=== PATIENT | female | born 1970 | race Caucasian/White ===

== ENCOUNTER → 2017-01-13 | Outpatient (CLI) | payer BC ==
--- NOTE | 2017-01-13 10:24 | KCIC ---
DATE: 01/13/2017 EXAM: MAMMO ANDREW SCREENING BILATERAL HISTORY: Routine screening COMPARISON: 11/25/2015 This study was interpreted with the benefit of Computerized Aided Detection (CAD). The breast parenchyma is heterogeneously dense, which could reduce sensitivity of mammography. Breast parenchyma level C. FINDINGS: 2-D and 3-D tomographic imaging was performed is seen in CC and MLO projections. There is a cluster of 2 smooth nodules centered at and just superior to the midline of the right breast. The more anterior nodule measures 3.8 cm while the adjacent posterior nodule measures 2.5 cm. There is a smooth 18 mm nodule in the central aspect of the left breast. Several additional scattered small subcentimeter smooth nodules are present in both breasts. The findings suggest multiple cysts. These are better demonstrated on the current tomographic views than on the prior 2-D images due to technical factors. No suspicious microcalcifications are evident. IMPRESSION: Multiple bilateral smooth breast nodules as described above, most likely representing cysts. Bilateral breast sonography is suggested to exclude a coexisting solid mass. BI-RADS CATEGORY: 0 INCOMPLETE: NEEDS ADDITIONAL IMAGING EVALUATION AND/OR PRIOR MAMMOGRAMS FOR COMPARISON. RECOMMENDED FOLLOW-UP: ADD ADDITIONAL IMAGING PQRS compliance statement: Patient information was entered into a reminder system with a target due date for the next mammogram. Mammography is a sensitive method for finding small breast cancers, but it does not detect them all and is not a substitute for careful clinical examination. A negative mammogram does not negate a clinically suspicious finding and should not result in delay in biopsying a clinically suspicious abnormality. "Our facility is accredited by the [employer] Mammography [employer]."
== END | disposition home or self-care (01) ==
LOC: KCIC MAMMO 08:15
PROVIDERS: ATTEND Advanced Practice Midwife
DX: Z12.31 Encounter for screening mammogram for malignant neoplasm of breast (principal); N63.10 Unspecified lump in the right breast, unspecified quadrant; N63.20 Unspecified lump in the left breast, unspecified quadrant
CPT/HCPCS: 77063; G0202; 77067

== ENCOUNTER → 2017-01-19 | Outpatient (CLI) | payer BC ==
--- NOTE | 2017-01-19 10:20 | RAD ---
EXAM: Bilateral breast ultrasound. HISTORY: Multiple bilateral densities on mammographic screening. Sonography is requested.. COMPARISON: 01/13/2017. FINDINGS: Sonographic evaluation of both breasts was performed. There are multiple benign cysts on the right. There is no suspicious solid mass. The largest cyst at the 12:00 position 1 cm from the nipple measures 3.3 x 2.2 cm. One at the 11:00 position 3 cm from the nipple measures 1.8 x 1.1 cm and contains a thin septation. Multiple other cysts measure up to 2.7 cm. Images of the right axilla reveal no suspicious lymph nodes. On the left, there are multiple cysts, some of which are calculated. There is no suspicious solid mass. At the 12:00 position 3 cm from the nipple, there is a cluster of small cysts versus a multiseptated cyst that measures 1.8 x 1.1 cm in conglomerate. A hypoechoic oval mass with increased through transmission at the 2:30 position 5 cm from the nipple measures 9 x 5 x 4 mm there is no internal flow and this is consistent with a complicated cyst. At the 12:00 position 2 cm from the nipple, a 9 x 6 mm cyst has a thin septation. Another at the 6:00 position 2 cm from the nipple is hypoechoic, but oval with through transmission and no internal flow. This is also likely, acute cyst. Images of the left axilla reveal no suspicious lymph nodes. IMPRESSION: 1. Multiple bilateral cysts measure up to 3.3 cm on the right. Some are complicated, but all appear benign. No suspicious solid mass. 2. BI-RADS Category 2: Benign findings. 3. Recommend bilateral screening mammography in one year.
== END | disposition home or self-care (01) ==
LOC: KCIC US 09:22
PROVIDERS: ATTEND Advanced Practice Midwife
DX: N63.10 Unspecified lump in the right breast, unspecified quadrant (principal); N63.20 Unspecified lump in the left breast, unspecified quadrant
CPT/HCPCS: 76641

== ENCOUNTER → 2017-09-23 | Outpatient (CLI) | payer BC | END | disposition home or self-care (01) | LOC: MAMMO 13:25 | DX: N63.11 Unspecified lump in the right breast, upper outer quadrant (principal) | CPT/HCPCS: 76641; 77065 ==

== ENCOUNTER → 2019-01-17 | Outpatient (CLI) | payer BC ==
--- NOTE | 2019-01-17 12:59 | KCIC ---
Bilateral digital screening mammograms with 3-D tomosynthesis: Reason for examination: Routine screening. Comparison is made to previous studies dated 09/23/2017 and 01/13/2017. Bilateral mammograms in CC and oblique projections were obtained with 2-D imaging and 3-D tomosynthesis imaging on a Siemens Inspiration unit and reviewed on the workstation. Interpretation was made with the benefit of CAD. The skin and nipples show no abnormalities. No abnormal axillary lymph nodes are seen. The breast parenchyma is extremely dense. (Breast density: Category D.) There continue to be circumscribed nodules in the right breast which are showing interval enlargement with the largest lesion now measuring 4.6 cm in greatest dimension. These correspond with cysts seen on previous ultrasound examination. There are smaller circumscribed nodules measuring up to 1 cm in size in the left breast which also probably represent cysts. This can be further evaluated with ultrasound. There are no suspicious calcifications. Impression: Continued presence of large circumscribed lesions in the right breast consistent with cysts seen on previous ultrasound examination with the largest now measuring 4.6 cm in greatest dimension. Smaller circumscribed lesions measuring up to 1 cm in size in the left breast also probably representing cysts but can be further evaluated with ultrasound. Your patient's mammogram demonstrates that she has dense breast tissue (breast density category C or D), which could hide abnormalities, and if she has other risk factors for breast cancer that have been identified, she might benefit from supplemental screening tests that may be suggested by you as her ordering physician. Dense breast tissue, in and of itself, is a relatively common condition. Therefore, this information is not provided to cause undue concern, but rather to raise your awareness and to promote discussion with your patient regarding the presence of other risk factors, in addition to dense breast tissue. Your patient's mammography results will be sent to her. BI-RAD Category 0: Complete. Needs additional imaging evaluation. "Our facility is accredited by the [employer] Mammography [employer]." This patient's information has been entered into a reminder system for the patient to be notified with the results of her examination and a target date for the next mammogram. Electronically signed by: Ritika Tamayo MD (01/17/2019 12:56 PM) [id number]
== END | disposition home or self-care (01) ==
LOC: KCIC MAMMO 08:06
PROVIDERS: ATTEND Obstetrics & Gynecology
DX: Z12.31 Encounter for screening mammogram for malignant neoplasm of breast (principal); N64.89 Other specified disorders of breast
CPT/HCPCS: 77063; 77067

== ENCOUNTER → 2019-02-06 | Outpatient (CLI) | payer BC ==
--- NOTE | 2019-02-06 13:35 | KCIC ---
Bilateral breast ultrasound: Reason for examination: Bilateral breast nodules. Comparison is made to previous exams dated 09/23/2017 and 01/19/2017. Bilateral whole breast ultrasound including evaluation of all 4 quadrants and the retroareolar and axillary regions of both breasts was performed. The right breast shows presence of cysts with the largest measuring 3.8 cm in size and located at the 12:30 position 4 cm from the nipple. There is also a small hypoechoic nodule at the 9:00 position 3 cm from the nipple measuring 4.9 mm in greatest dimension and at the 9:00 position 2 cm from the nipple measuring 5.2 mm in greatest dimension which probably represent small fibroadenoma or complicated cysts. No suspicious nodules are seen. No abnormal appearing lymph nodes are seen in the axilla. The left breast shows a cluster of cystic lesions at the 12:00 position 3 cm from the nipple which has decreased in size measuring 6.7 mm in greatest dimension. At the 12:30 position 3 cm from the nipple, there is a small circumscribed lesion measuring 6.6 mm in greatest dimension consistent with a complicated cyst. In the 2:00 position 4 cm from the nipple there is a 9.6 mm hypoechoic lesion with a benign fibrocystic/fibroadenomatous appearance. There appears to be cysts at the 3:00 position 3 cm from the nipple and 3:00 position 2 cm from the nipple measuring up to 1.1 cm in greatest dimension. There is a hypoechoic circumscribed lesion at the 6:00 position 2 cm from the nipple measuring 5.7 mm in size which may represent a fibroadenoma but is unchanged. There is a 4.9 mm hypoechoic circumscribed lesion in the 9:00 retroareolar position which may represent a small concave cysts or fibroadenoma. No suspicious-appearing nodules are seen. No abnormal appearing lymph nodes are seen in the axilla. IMPRESSION: Continued presence of benign-appearing cystic and fibrocystic/fibroadenomatous nodules bilaterally. No suspicious nodules seen. Recommend 6 month follow-up with ultrasound. BI-RADS Category 3: Probably Benign. "Our facility is accredited by the [employer] Mammography [employer]." This patient's information has been entered into a reminder system for the patient to be notified with the results of her examination and a target date for the next mammogram. Electronically signed by: Ritika Tamayo MD (02/06/2019 1:32 PM) [id number]
== END | disposition home or self-care (01) ==
LOC: KCIC US 08:48
PROVIDERS: ATTEND Obstetrics & Gynecology
DX: N60.01 Solitary cyst of right breast (principal); N63.11 Unspecified lump in the right breast, upper outer quadrant; N64.89 Other specified disorders of breast
CPT/HCPCS: 76641

== ENCOUNTER → 2020-03-05 | Outpatient (CLI) | payer BC ==
--- NOTE | 2020-03-05 11:13 | RAD ---
EXAM: Bilateral digital diagnostic mammogram with tomosynthesis; bilateral breast sonogram. HISTORY: 49-year-old female presents for follow-up evaluation of benign-appearing findings within bot h breasts demonstrated on a sonogram dated 02/06/2019. The patient did not return at the recommended 6 month follow up interval and is now due for bilateral mammography. TECHNIQUE: Full-field digital craniocaudal and mediolateral oblique 2D and 3D tomosynthesis images of both breasts are obtained for evaluation. Computer aided detection was applied. Sonographic imaging of both breasts including all 4 quadrants and the retroareolar regions was performed. COMPARISON: Sonogram dated 02/06/2019 and mammograms dated 01/17/2019, 09/23/2017 and 01/13/2017. BREAST PARENCHYMAL DENSITY: Level D - Extremely dense. FINDINGS: There are multiple circumscribed masses within both breasts chest with previously demonstra elena cysts. Largest cyst is seen within the 12:00 position of the right breast. There are several cyst s which are increased in size compared to the prior study. There is no new suspicious calcification o r architectural distortion. Sonographic imaging of the right breast demonstrates a dominant simple cyst at the 12:30 position 4 c m from the nipple measuring 4.5 cm. There is an adjacent smaller simple appearing cyst at the 12:00 p osition 1 cm for the nipple measuring 2.4 cm. There is a 2.6 cm simple cyst at the 6:00 position 2 cm from the nipple. There are 4 mm an 6 mm complicated cysts or benign fibrocystic lesions at the 9:00 position 3 cm and 2 cm from the nipple. No solid lesion is seen. Sonographic imaging of the left breast demonstrates a 8 mm cluster of cysts at the 12:00 position 3 c m from the nipple. There is a 6 mm cyst at the 12:30 position 3 cm from the nipple. There is an 10 mm complicated cyst or benign fibrocystic lesion at the 2:00 position 4 cm from the nipple. There is a 1.7 cm simple cyst at the 3:00 position 2 cm from the nipple. There is a bilobed cyst measuring 1.4 c m at the 3:00 position 3 cm from the nipple. There is a 5 mm complicated cyst or benign fibrocystic l esion at the 6:00 position 2 cm from the nipple. There is a similar-appearing suspected benign fibroc ystic lesion measuring 7 mm at the 9:00 retroareolar location. There is a 2.6 cm simple cyst at the 9 :00 position 1 cm from the nipple. No solid lesion is seen. IMPRESSION: 1. Multiple circumscribed nodular densities within both breasts, consistent with simple and complicat ed cysts and suspected benign fibrocystic lesions demonstrated sonographically. The largest cyst is s imple in appearance and measures 4.5 cm at the 12:30 position of the right breast 4 cm from the nippl e. The largest cyst on the left measures 2.6 cm at the 9:00 position 1 cm from the nipple. No suspici ous mammographic or sonographic lesion is seen. 2. BI-RADS Category 2: Benign finding(s). RECOMMENDATION: Annual mammography is recommended. If your mammogram demonstrates that you have dense breast tissue, which could hide abnormalities, and if you have other risk factors for breast cancer that have been identified, you might benefit from s upplemental screening tests that may be suggested by your ordering physician. Dense breast tissue, i n and of itself, is a relatively common condition. This information is not provided to cause undue c oncern, but rather to raise your awareness and to promote discussion with your physician regarding th e presence of other risk factors, in addition to dense breast tissue. A report of your mammography re sults will be sent to you and your physician. You should contact your physician if you have any ques tions or concerns regarding this report. Mammography is a sensitive method for finding small breast cancers, but it does not detect them all a nd is not a substitute for careful clinical examination. A negative mammogram does not negate a clin ically suspicious finding and should not result in delay in biopsying a clinically suspicious abnorma lity. PQRS compliance statement - Patient information was entered into a reminder system with a target due date for the next mammogram. "Our facility is accredited by the [employer] Mammography Program." Electronically signed by: Shey Mena MD (03/05/2020 11:10 AM) [id number]
== END ==
LOC: MAMMO 09:49
PROVIDERS: ATTEND Obstetrics & Gynecology
DX: N60.01 Solitary cyst of right breast (principal); N60.02 Solitary cyst of left breast
CPT/HCPCS: 77066; 76641-50

== ENCOUNTER → 2020-08-08 | Outpatient (CLI) | payer BC ==
--- NOTE | 2020-08-08 14:58 | RAD ---
EXAM: Right breast ultrasound. HISTORY: Palpable focus right breast. COMPARISON: 03/05/2020. FINDINGS: Sonographic evaluation of the right breast was performed at the site of palpable concern. At the 12:00 position 2 cm from the nipple, a simple benign appearing cyst measures 5.4 x 3.2 x 4.4 c m. This is increased from 3.8 x 2.5 x 2.4 cm previously. Another adjacent cyst at the 11:30 position 2 cm from the nipple also appears simple and benign and measures 1.8 x 1.5 x 2.0 cm. Images of the right axilla reveal no pathologic-appearing lymph nodes. IMPRESSION: 1. The palpable focus corresponds with 2 prominent benign cysts at the 11:30-12:00 positions, measuri ng up to 5.4 cm. If these are symptomatic, ultrasound-guided aspiration could be considered. 2. BI-RADS Category 2: Benign findings. Electronically signed by: Aline Brennan MD (08/08/2020 2:55 PM) [id number]
== END ==
LOC: US 13:39
PROVIDERS: ATTEND Obstetrics & Gynecology
DX: N60.01 Solitary cyst of right breast (principal)
CPT/HCPCS: 76641